=== PATIENT | male | born 1990 | race African-American/Black ===

== ENCOUNTER 2021-05-29 10:40 | Emergency (ER) | payer OTHER ==
[~2021-05-29] VITALS: Ht 180.3 cm; Wt 70.5 kg
[2021-05-29 10:50] VITALS: BP 132/78
[2021-05-29] MEDS ORDERED: IBUP-1007 PO (11:52)
[2021-05-29] MEDS ORDERED: PRED50TA PO (11:52)
--- NOTE | 2021-05-29 11:53 | PHYS DOC ---
Past Medical History Past Medical History: No Pertinent History (CHELI MARIANO FREIGHT ELEVATOR ERECTOR) Past Surgical History: No Surgical History (BASILCHELI Lakhani FREIGHT ELEVATOR ERECTOR) Smoking Status: Light Tobacco Smoker Alcohol Use: Occasionally (BASILLesviaCHELI William FREIGHT ELEVATOR ERECTOR) General Adult EDM: Chief Complaint: SORE THROAT HPI: HPI: Patient is a 31 year old male who presents to the ED today complaining of sore throat for 3 days. Patient denies any fever, cough, congestion. Patient's girlfriend is being evaluated for the same complaint (CHELI MARIANO William FREIGHT ELEVATOR ERECTOR) Review of Systems: Review of Systems: Constitutional: Denies fever or chills. [] Eyes: Denies change in visual acuity. [] HENT: Reports sore throat. Denies nasal congestion Respiratory: Denies cough or shortness of breath. [] Cardiovascular: Denies chest pain or edema. [] GI: Denies abdominal pain, nausea, vomiting, bloody stools or diarrhea. [] : Denies dysuria. [] Musculoskeletal: Denies back pain or joint pain. [] Integument: Denies rash. [] Neurologic: Denies headache, focal weakness or sensory changes. [] Psychiatric: Denies depression or anxiety. [] (BASILCHELI Lakhani FREIGHT ELEVATOR ERECTOR) Heart Score: C/O Chest Pain: N/A Risk Factors: Risk Factors: DM, Current or recent (<one month) smoker, HTN, HLP, family history of CAD, obesity. Risk Scores: Score 0 - 3: 2.5% MACE over next 6 weeks - Discharge Home Score 4 - 6: 20.3% MACE over next 6 weeks - Admit for Clinical Observation Score 7 - 10: 72.7% MACE over next 6 weeks - Early Invasive Strategies (CHELI MARIANO FREIGHT ELEVATOR ERECTOR) Allergies: Allergies: Allergies Coded Allergies Type Severity Reaction Last Updated Verified No Known Drug Allergies 05/29/21 No (BASILCHELI Lakhani FREIGHT ELEVATOR ERECTOR) Physical Exam: PE: Constitutional: Well developed, well nourished, no acute distress, non-toxic appearance. [] HENT: Normocephalic, atraumatic, bilateral external ears normal, oropharynx moist, no oral exudates, nose normal. [] Eyes: PERRLA, EOMI, conjunctiva normal, no discharge. [] Neck: Normal range of motion, no tenderness, supple, no stridor. [] Cardiovascular:Heart rate regular rhythm, no murmur [] Lungs & Thorax: Bilateral breath sounds clear to auscultation [] Abdomen: Bowel sounds normal, soft, no tenderness, no masses, no pulsatile masses. [] Skin: Warm, dry, no erythema, no rash. [] Back: No tenderness, no CVA tenderness. [] Extremities: No tenderness, no cyanosis, no clubbing, ROM intact, no edema. [] Neurologic: Alert and oriented X 3, normal motor function, normal sensory function, no focal deficits noted. [] Psychologic: Affect normal, judgement normal, mood normal. [] (CHELI MARIANO APRN) Current Patient Data: Labs: Laboratory Tests Test 05/29/21 11:03 Group A Streptococcus Rapid Negative (NEGATIVE) Vital Signs: Vital Signs Date Time Temp Pulse Resp B/P (MAP) Pulse Ox O2 Delivery O2 Flow Rate FiO2 05/29/21 10:50 96.6 78 16 132/78 (96) 98 Room Air 96.6 (CHELI MARIANO APRN) EKG: EKG: [] (CHELI MARIANO APRN) Radiology/Procedures: Radiology/Procedures: [] (CHELI MARIANO APRN) Course & Med Decision Making: Course & Med Decision Making Pertinent Labs and Imaging studies reviewed. (See chart for details) This is a 31-year-old male patient presented to the ED today with sore throat for 3 days. Negative rapid strep. Supportive care measures recommended. Discharged home patient refused Covid test. (CHELI MARIANO APRN) Course & Med Decision Making I oversaw on the above date of service of this patient. This patient was evaluated, examined, treated, and dispositioned from the emergency department by the mid-level practitioner. Although I was working at the time and available for consultation, no assistance was requested and I did not see or immediately direct the care of this patient. I reviewed note and agree to findings, plan of care, and disposition as stated. Electronically signed, Migue Uriostegui DO (MIGUE URIOSTEGUI DO) Corey Disclaimer: Corey Disclaimer: This electronic medical record was generated, in whole or in part, using a voice recognition dictation system. (MUTUNGA,CHELI M FREIGHT ELEVATOR ERECTOR) Departure Departure Impression: Primary Impression: Acute pharyngitis Qualified Codes: J02.9 - Acute pharyngitis, unspecified Disposition: HOME / SELF CARE / HOMELESS Condition: STABLE Referrals: NO PCP (PCP) SAMEER ESPARZA MD follow up in one week Patient Instructions: Viral Pharyngitis Additional Instructions: You were evaluated for sore throat, your rapid strep test is negative. Take prescribed medication as ordered. You can also use salt water gargles, Tylenol or Motrin for pain or fever. Push fluids, maintain good and hygiene. Follow-up with your primary care doctor or ENT in 1 week Scripts Ibuprofen (IBUPROFEN) 600 Mg Tablet 600 MG PO PRN Q6HRS PRN for INFLAMMATION, #30 TAB Prov: CHELI MARIANO APRN 05/29/21 Prednisone (PREDNISONE) 50 Mg Tablet 1 TAB PO DAILY, #5 TAB Prov: CHELI MARIANO APRN 05/29/21 CHELI MARIANO APRN May 29, 2021 11:53 MIGUE URIOSTEGUI DO May 29, 2021 15:43
== END 2021-05-29 11:56 | disposition home or self-care (01) ==
LOC: ER 10:40
DX: J02.9 Acute pharyngitis, unspecified (principal); Z72.0 Tobacco use
CPT/HCPCS: 87070; 87880; 99283